=== PATIENT | female | born 1950 | race Hispanic/Latino ===

== ENCOUNTER 2018-10-04 06:02 | Day surgery (SDC) | payer MEDICARE ==
[2018-09-21 12:57] VITALS: BMI 37.2
--- NOTE | 2018-10-02 08:12 | HP ---
DATE OF EXAM: 10/01/2018 REASON FOR ADMISSION: Left heart cath, possible angioplasty. BRIEF CLINICAL HISTORY: This is a 67-year-old female with past medical history significant for asthma, COPD, hypertension, palpitation, moderate aortic stenosis, trace aortic regurgitation, mild mitral regurgitation, mild tricuspid regurgitation, admitted for left cardiac cath, possible angioplasty. PAST MEDICAL HISTORY: Significant for COPD, asthma, aortic stenosis, mitral regurgitation, tricuspid regurgitation, hypertension, hyperlipidemia. Recent cardiac workup as follows: The patient had a stress test dated 01/05/2018, at that time, the patient had essentially normal myocardial perfusion study, ejection fraction 72%. The patient has echocardiogram on 01/05/2018, that showed ejection fraction of 65%, [id number] aortic stenosis, trace aortic regurgitation, mild mitral regurgitation, mild tricuspid regurgitation, trace tricuspid regurgitation dated 01/05/2018. The patient was recently seen by Dr. Tillman and the patient was complaining of chest pain and dyspnea on exertion with walking half a block. So, the patient was thought to be having atypical angina. The patient is scheduled for elective cardiac cath and possible angioplasty by Dr. Tillman. MEDICATIONS: Current medications that the patient is taking at home; Advair 1 puff p.o. b.i.d., Janet, Cardizem CD 240 mg daily, Spiriva 2 puffs daily, losartan 50 mg daily, and Xyzal 5 mg p.o. at bedtime. ALLERGIES: NO KNOWN DRUG ALLERGY. REVIEW OF SYSTEMS: As per HPI. PHYSICAL EXAMINATION: VITAL SIGNS: As follows: Height of the patient 5 feet 3 inches, weight of the patient 210 pounds, body mass index 38 kg/m2. Rest of the vitals; temperature afebrile, heart rate 60, blood pressure 140/80. HEENT: PERRLA. Extraocular muscles intact. NECK: Supple. No carotid bruit or thyromegaly. CHEST: Clear to auscultation. HEART: S1 and S2 are regular. ABDOMEN: Soft. EXTREMITIES: Clubbing and cyanosis negative. LABORATORY DATA: Blood workup is pending. IMPRESSION: A 67-year-old female with a past medical history significant for chronic obstructive pulmonary disease, hypertension, hyperlipidemia, aortic regurgitation, mitral regurgitation, and tricuspid regurgitation. History of stress test in December is essentially normal. History of echo has a moderate aortic stenosis, mild mitral regurgitation, mild tricuspid regurgitation. Recently, the patient was seen by Dr. Tillman and thought to be atypical angina.. The patient is scheduled for elective cardiac catheterization and possible angioplasty. We will also do right heart catheterization to assess the valve and pulmonary hypertension. We will load with aspirin and Plavix after the blood work is available. Risk, benefit, and alternatives were explained to the patient. The patient agreed to proceed with cardiac catheterization. We will follow with you. Thank you Dr. Powers/Dr. Tillman for providing us the opportunity in taking care of the patient, Alina Arceo. Davie Lam MD
[2018-10-04 06:43] VITALS: O2SAT 98
[2018-10-04 07:03] LABS: BASO # 0.03 K/mm3 (0.0-2.0); BASO % 0.5 % (0.0-3.0); EOS # 0.3 (0.0-0.7); EOS % 3.8 % (1.5-5.0); GRAN # 3.63 (1.4-6.5); GRAN % 55.8 % (50.0-68.0); HEMOGLOBIN 13.5 g/dL (12.0-16.0); LYMPH # 2.1 (1.2-3.4); LYMPH % 32.5 % (22.0-35.0); MEAN CELL VOLUME 85.9 fl (80.0-105.0); MEAN CORPUSCULAR HEMOGLOBIN 28.9 pg (25.0-35.0); MEAN CORPUSCULAR HGB CONC 33.7 g/dl (31.0-37.0); MEAN PLATELET VOLUME 9.6 fl (7.0-11.0); MONO # 0.5 (0.1-0.6); MONO % 7.4 % (1.0-6.0); RBC 4.67 10^6/uL (3.5-6.1); RED CELL DISTRIBUTION WIDTH 12.8 % (11.5-14.5); WHITE BLOOD COUNT 6.5 10^3/uL (4.5-11.0)
[2018-10-04 07:07] LABS: BLOOD UREA NITROGEN 10 mg/dL (7-21); CALCIUM 9.3 mg/dL (8.4-10.5); GFR NON-AFRICAN AMERICAN > 60; HDL CHOLESTEROL 40 mg/dL (29-60)
[2018-10-04] MEDS ORDERED: Lidocaine 2% Inj (20ml) ONE (07:10)
[2018-10-04] MEDS ORDERED: Iohexol 350mgl/ml 50 ML ONE (07:11)
[2018-10-04] MEDS ORDERED: Phenylephrine 10 mg/ml Inj ONE (07:11)
[2018-10-04] MEDS ORDERED: Iohexol 350 MG/100 ML VIAL ONE (07:11)
[2018-10-04] MEDS ORDERED: Nitroglycerin 50mg in D5W 0 MG/0 ML BOTTLE IV ONE (07:12)
[2018-10-04 07:13] LABS: INR 1.02; PARTIAL THROMBOPLASTIN TIME 30.1 Seconds (25.1-36.5); PROTHROMBIN TIME 11.7 SECONDS (9.4-12.5)
[2018-10-04 07:18] LABS: LDL CHOLESTEROL 119 mg/dL (0-129)
[2018-10-04] MEDS ORDERED: Midazolam 2 MG/2 ML VIAL ONE (07:44)
[2018-10-04] MEDS ORDERED: Eptifibatide 20 mg/10mL Inj IVP ONE (08:09)
[2018-10-04] MEDS ORDERED: Sodium Chloride 0.9% 1,000 ML IV SCH (09:15)
[2018-10-04] MEDS ORDERED: Budesonide 0.5 mg/2 ml Inhal Susp UD IH ONE (09:30)
[2018-10-04] MEDS ORDERED: Arformoterol 15 mcg/2 ml Inh Sol IH ONE (09:30)
[2018-10-04] MEDS ORDERED: FEXOFENADINE HCL PO SCH (10:00)
[2018-10-04 10:34] VITALS: RESP 18
[2018-10-04 11:41] VITALS: TEMP 98
--- NOTE | 2018-10-04 11:56 | CPOSTOP ---
DATE: 10/04/2018 DICTATING PHYSICIAN: Davie Lam MD STUMP BLOWER: ELYSIA Daley. TYPE OF ANESTHESIA: Moderate conscious sedation. Total 2 mg of Versed and 100 fentanyl given periodically. Started 1 mg of Versed and 50 of fentanyl. PRE-PROCEDURE DIAGNOSIS: Unstable angina, pulmonary hypertension, abnormal stress test. PROCEDURE PERFORMED: 1. Left heart catheterization. 2. Right heart catheterization. 3. Stenting of distal circumflex, continue into LPDA. FINDINGS: 1. Single vessel disease. 2. Upper limit normal right heart pressure. FINAL DIAGNOSES: 1. One vessel disease. 2. Upper limit normal right heart pressure. 3. Pulmonary hypertension upper limit normal. POSTPROCEDURE CONDITION: The patient's condition is stable. VASCULAR ACCESS SITE: Right femoral artery for left heart cath and right femoral artery for right heart catheterization. CLOSURE DEVICE: Angioseal right femoral artery, vein for right femoral vein. TOTAL RADIATION DOSE: 78400.2 mGy. TOTAL FLUORO TIME: 15.3 minutes. Davie Lam MD
[2018-10-04 12:44] LABS: BASO # 0.03 K/mm3 (0.0-2.0); BASO % 0.6 % (0.0-3.0); EOS # 0.2 (0.0-0.7); EOS % 3.2 % (1.5-5.0); GRAN # 2.6 (1.4-6.5); GRAN % 51.6 % (50.0-68.0); HEMOGLOBIN 12.1 g/dL (12.0-16.0); LYMPH # 1.9 (1.2-3.4); MEAN CELL VOLUME 86.2 fl (80.0-105.0); MEAN CORPUSCULAR HEMOGLOBIN 28.4 pg (25.0-35.0); MEAN PLATELET VOLUME 9.4 fl (7.0-11.0); MONO # 0.3 (0.1-0.6); MONO % 6.6 % (1.0-6.0); RBC 4.26 10^6/uL (3.5-6.1); RED CELL DISTRIBUTION WIDTH 12.7 % (11.5-14.5)
[2018-10-04 12:54] LABS: BLOOD UREA NITROGEN 10 mg/dL (7-21); CALCIUM 8.2 mg/dL (8.4-10.5); GFR NON-AFRICAN AMERICAN > 60
[2018-10-04 13:19] VITALS: BP 128/62; PULSE 90
--- NOTE | 2018-10-04 14:13 | DS ---
BRIEF CLINICAL HISTORY: This is a 67-year-old female with past medical history of hypertension, hyperlipidemia, COPD, pulmonary hypertension, noninvasive, abnormal stress test. The patient is scheduled for elective cardiac cath and possible angioplasty. The patient underwent left and right heart catheterization and a stenting of the distal circumflex. The patient's stress test shows ejection fraction 72%, mild perfusion abnormality and echo shows tricuspid regurgitation, RV systolic pressure 40. The patient underwent as mentioned left and right heart cath and stenting of the circumflex. Hospital course remained uneventful. The patient is currently being discharged and planned to follow up with Dr. Lam in one to two weeks. MEDICATIONS: At discharge include Advair 1 puff b.i.d., Janet, Cardizem CD 240 mg daily, Spiriva 2 puffs daily, losartan 50 mg at night, Xyzal 5 mg at bedtime, baby aspirin 81 mg and 5 mg daily. PRINCIPAL PROCEDURE DONE ON THIS ADMISSION: Include; 1. Left heart catheterization. 2. Right heart catheterization. 3. Stenting of distal circumflex continue into LPDA, left posterior circumflex. Davie Lam MD cc: Dr. Powers and Dr. Tillman.
--- NOTE | 2018-10-04 14:29 | CARD ---
APPROVED REPORT Date of service: 10/04/2018 EKG Measurement Heart [id number] <Conclusion> Normal sinus rhythm Normal ECG
--- NOTE | 2018-10-04 14:33 | CARD ---
APPROVED REPORT Date of service: 10/04/2018 EKG Measurement Heart [id number] TX [id number] <Conclusion> Normal sinus rhythm Normal ECG
--- NOTE | 2018-10-04 16:09 | CARD ---
APPROVED REPORT Date of service: 10/04/2018 Procedure(s) performed: Complete Heart Catheterization PTCA with Stenting of Distal CX continued to L PDA. HISTORY The patient is a 67 year-old female with a history of : most recent EF: 73%. (EF Method: RADIONUCLIDE), chronic lung disease, hypertension , dyslipidemia , Mild pulmonary HTN, and mild to moderate by echo and C/o SOB on exertion.. INDICATION The indication(s) include : unstable angina , dyspnea. CASE TECHNIQUE The patient was brought electively to the Cardiac Catheterization Laboratory in a fasting state and was prepped and draped in a sterile manner. The right femoral groin was infiltrated with 2% Lidocaine subcutaneous anesthesia. A sheath was inserted into the right femoral artery without difficulty. Coronary angiography was performed using coronary diagnostic catheters. The left coronary system was accessed and visualized with a Diagnostic,6F JL4 CATH DXT 100 CM catheter. The right coronary system was accessed and visualized with a Diagnostic , 6F JR 4 CATH DXT 100 CM catheter. The left ventricle was accessed and visualized with a 6F PIGTAIL 145 CATH DXT 110 CM catheter. Left ventricular/Aortic Valve gradient assessed on pullback. Left ventriculogram was performed in PICHARDO projection. A Right Heart Catheterization was performed with a 7 Fr. [place] catheter and pressure were recorded. A 7 sheath was inserted into the right femoral vein without difficulty. Coronary angiography was performed using coronary diagnostic catheters. Cardiac outputs were obtained by the Thermal Dilution method. Closure device was deployed with a 6 Fr Angio-Seal without any complications. The patient tolerated the procedure well and there were no complications associated with the procedure. 6 Fr Angio-seal in RFA and Mynx in RF vein applied Vessel Analysis The patient's coronary anatomy is left dominant. The left main coronary artery is a medium size vessel without significant stenosis. The left main bifurcates to the left anterior descending and circumflex. The left anterior descending artery is a medium size vessel with diffuse calcification noted throughout this vessel and without significant stenosis. There is a 30-40% stenosis in the mid segment. The first diagonal branch is a medium size vessel with diffuse calcification noted throughout this vessel and without significant stenosis. The circumflex artery is a large size vessel with diffuse calcification noted throughout this vessel and with significant stenosis. There is a 80-90% stenosis in the distal segment. Continued as L PDA The first obtuse marginal branch is a small size vessel with intimal irregularities and without significant stenosis. The second obtuse marginal branch is a large size vessel with intimal irregularities and without significant stenosis. The third obtuse marginal branch is a large size vessel with intimal irregularities and without significant stenosis. The left posterior descending artery is a large size vessel with diffuse calcification noted throughout this vessel and with significant stenosis. There is a 80-90% stenosis in the ostial segment. The right coronary artery is a small size vessel with intimal irregularities and without significant stenosis. Left Ventricle The left ventricle is normal in size with normal contractility. There was no cardiomyopathy. The left ventricular ejection fraction is estimated to be 65%. The left ventricular end diastolic pressure is 15-18 mmHg. 5-8 mm gradient across the aortic valve, at the most on Pull back . Right Heart Cath Findings The Right Atrial Pressure is 6-7 mmHg. The Right Ventricular Pressure is 31/7 mmHg. The Pulmonary Artery Pressure is 27/10 mmHg. with a mean of 16-17 The Pulmonary Catheter Wedge Pressure is 12 mmHg. PVR 0.9- 1.0 Wood units. The cardiac output and index were assessed using thermo dilution. The Cardiac Output is 5.70 L/min. The Cardiac index is 2.88 L/min/m2. PCI Technique Lesion Anticoagulation was achieved with Heparin and Two Integrellin bolluses. Percutaneous coronary intervention was performed on the distal circumflex artery segment continued into ostal L PDA. The lesion stenosis prior to intervention was 80-90% with JOSE 2 flow. A 6 Fr JL 4 Guide Catheter was used to engage the ostium. A Luge 182 Interventional Guidewire was used to cross the lesion. BALLOON DILATION A Balloon catheter 2.25 x 6 mm Sprinter RX was inserted and inflated up to 10.00atm for 20seconds. STENT DEPLOYMENT A drug-eluting stent STENT RESOLUTE MONIKA 2.5 X12 was inserted and inflated up to 14.00atm for 20seconds. Final angiography reveals 0 % stenosis with JOSE 3 flow. Conclusion Single Vessel CAD involving distal Cx continued into Ostal L PDA 80-90% stenosis. Preseved LV FX-EF-65%,EDP-15-18 mmof Hg. upper Limit Normal RHC. Successful pTCA with CHRISTA of Distal Cx and Ostial LPDA Recommendations Daily ASA with Plavix for at least one year Aggressive Medical TherapyCardiac Risk Reduction Program Weight Loss Reduction Program CC; Drs. [place] tor[place] / Layne/ Rodrigo Spaulding.
[2018-10-04] MEDS ORDERED: Fluticasone-Salmeterol 500-50mcg Diskus INH SCH (18:00)
[2018-10-04] MEDS ORDERED: Tiotropium 18 mcg Cap For Inhalation IH SCH (18:00)
[2018-10-04] MEDS ORDERED: Arformoterol 15 mcg/2 ml Inh Sol IH SCH (20:00)
[2018-10-04] MEDS ORDERED: Budesonide 0.5 mg/2 ml Inhal Susp UD IH SCH (20:00)
[2018-10-05] MEDS ORDERED: FEXOFENADINE HCL PO SCH (10:00)
[2018-10-05] MEDS ORDERED: diltiaZEM 240 mg/24 Hours CD Cap PO SCH (10:00)
== END 2018-10-04 14:56 | disposition home or self-care (01) ==
LOC: CATH 06:02 → 2RSO 09:21 → CATH 14:56
PROVIDERS: ATTEND Internal Medicine Cardiovascular Disease
DX: I25.110 Atherosclerotic heart disease of native coronary artery with unstable angina pectoris (principal); I27.20 Pulmonary hypertension, unspecified; R94.39 Abnormal result of other cardiovascular function study; E78.5 Hyperlipidemia, unspecified; I10 Essential (primary) hypertension; J44.9 Chronic obstructive pulmonary disease, unspecified; Z79.899 Other long term (current) drug therapy
CPT/HCPCS: 36415; 80048; 80061; 85025; 85175; 85610; 85730; 86850; 86900; 93005; 93460; 94640; 94760; 99152; 99153; C1725; C1760 ×2; C1769 ×2; C1874; C1887 ×2; C1894; C2629; C9600; J1327; J1644 ×2; J2250; J3010; J7030; J7040; Q9967 ×3